=== PATIENT | female | born 1945 | race Caucasian/White ===

== ENCOUNTER → 2025-08-24 13:14 | Outpatient (BNVA) | payer MEDICARE, OTHER, SELFPAY | PROVIDERS: Family Provider Family Medicine; PCP Family Medicine; Visit Provider Family Medicine | DX: D48.9 Neoplasm of uncertain behavior, unspecified (principal) | CPT/HCPCS: 81000; 87086 ==

== ENCOUNTER 2025-09-08 11:05 | Outpatient (CLI) | payer MEDICARE, OTHER, SELFPAY | END 2025-09-08 11:06 | disposition home or self-care (01) | LOC: LAB 09-10 07:23 | PROVIDERS: PCP Family Medicine; Visit Provider Family Medicine | DX: R39.15 Urgency of urination (principal) | CPT/HCPCS: 81000 ==

== ENCOUNTER 2025-09-20 11:26 | Outpatient (CLI) | payer MEDICARE, OTHER, SELFPAY ==
--- NOTE | 2025-09-20 12:00 | CTR_ITS ---
PROCEDURE INFORMATION: Exam: CT Abdomen And Pelvis Without Contrast Exam date and time: 09/20/2025 11:36 AM Age: 79 years old Clinical indication: Abdominal pain, pelvic pressure when going to the bathroom. TECHNIQUE: Imaging protocol: Computed tomography of the abdomen and pelvis without contrast. Radiation optimization: All CT scans at this facility use at least one of these dose optimization techniques: automated exposure control; mA and/or kV adjustment per patient size (includes targeted exams where dose is matched to clinical indication); or iterative reconstruction. COMPARISON: No relevant prior studies available. RADIATION DOSE METRICS: Total DLP (mGy-cm): 343.63 FINDINGS: Lungs: There is linear atelectasis/scarring in the right lower lobe with associated soft tissue density in a somewhat linear morphology. Liver: Unremarkable unenhanced appearance of the liver. Gallbladder and biliary ducts: Unremarkable appearance of the gallbladder. No calcified stones. No biliary ductal dilation. Pancreas: No main pancreatic duct dilation. There are 2 hypoattenuating foci in the pancreatic head which are both subcentimeter and incompletely characterized on noncontrast CT. Spleen: No splenomegaly. Adrenal glands: There is a subcentimeter left adrenal nodule measuring 8 mm, too small to accurately characterize. The right adrenal is unremarkable. Kidneys and ureters: No hydronephrosis. There bilateral round, hyperdense lesions in the kidneys. Stomach and bowel: Colonic diverticulosis without CT findings of acute diverticulitis. No bowel obstruction. No mucosal thickening. Appendix: The appendix is normal. Intraperitoneal space: Unremarkable. No free air. No significant fluid collection. Vasculature: No aortic aneurysm. Atherosclerosis. Lymph nodes: No lymphadenopathy by CT size criteria. Urinary bladder: The urinary bladder is unremarkable. Reproductive: Calcified foci in the uterus, likely representing degenerated fibroids. The uterus and adnexa are otherwise unremarkable. Bones/joints: No acute fracture. Soft tissues: Unremarkable. CT/CT abdomen pelvis wo con [id number] IMPRESSION: 1. No acute process in the abdomen or pelvis. 2. Linear atelectasis/scarring in the right lower lobe with associated soft tissue density/thickening in a somewhat linear morphology. Recommend correlation with prior imaging if available and patient risk factors for consideration of short interval follow-up imaging to ensure stability. 3. There are 2 hypoattenuating foci in the pancreatic head, both subcentimeter and incompletely characterized on noncontrast CT. These can be further evaluated with MRCP in 1 year to evaluate for stability. 4. Small indeterminate hypoattenuating renal foci bilaterally. These may represent hyperdense cysts, but characterization is limited on noncontrast CT. If clinically indicated, renal protocol CT/MRI could be obtained on a nonemergent basis for further characterization. COMMENTS: 1. Consistent with the [employer]'s Incidental Findings Committee white paper (J Am Michaela Radiol 2017): Any incidental adrenal lesion less than 1 cm is likely benign. No follow-up imaging is recommended for these lesions per consensus recommendations based on imaging criteria. Further lab evaluation could be pursued if warranted based on clinical findings. 2. Consistent with the [employer]'s Incidental Findings Committee white paper (J Am Michaela Radiol 2018): Any incidental renal lesion less than 1 cm or classified as too small to characterize, or any incidental cystic renal lesion characterized as simple-appearing, is likely benign. No follow-up imaging is recommended for these lesions per consensus recommendations based on imaging criteria.
== END 2025-09-20 11:27 | disposition home or self-care (01) ==
LOC: RAD 11:27
PROVIDERS: PCP Family Medicine; Visit Provider Family Medicine
DX: N85.8 Other specified noninflammatory disorders of uterus (principal); R10.30 Lower abdominal pain, unspecified; R19.5 Other fecal abnormalities; J98.11 Atelectasis; R91.8 Other nonspecific abnormal finding of lung field; K86.89 Other specified diseases of pancreas; N28.89 Other specified disorders of kidney and ureter; E27.8 Other specified disorders of adrenal gland; K57.30 Diverticulosis of large intestine without perforation or abscess without bleeding; I70.90 Unspecified atherosclerosis
CPT/HCPCS: 74176; 81000